=== PATIENT | female | born 1985 | race Caucasian/White ===

== ENCOUNTER 2023-06-02 00:28 | Day surgery (SDC) | payer OTHER, BC, SELFPAY ==
[2023-05-24 13:52] VITALS: BMI 31.6
--- NOTE | 2023-05-24 13:53 | PC.NURSE ---
Report to the Outpatient Waiting Room, entrance under the green pavilion located off [facility], at time _0730_ on date _[id number]_. Planned Procedure Time: _0930_. Time changes happen often and if your time is changed the preop area will call you the afternoon before. - You and your visitor will be asked to self-screen and do not enter if you have any COVID symptoms. - A mask is optional within the hospital at this time. Patients may have clear liquids (water, carbonated beverages, clear teas, apple juice) until 3 hours prior to surgery with a maximum of 20 ounces. - No food from midnight until time of surgery Take the following medications with a SIP of water the morning of surgery: None DO NOT STOP ANY OF YOUR OTHER PRESCRIPTION MEDICATIONS PRIOR TO SURGERY ?EXCEPT THE FOLLOWING Medications to discontinue per physician None Date to take last dose Please no make-up, nail uruguayan, hairspray, perfume, deodorant, or body powder the day of surgery. No jewelry (including any body piercings) or valuables the day of surgery, leave them at home. Please take a shower or bath the night before, or the morning of, surgery with an antibacterial soap. Wear comfortable, loose fitting clothing. - Jewelry must be removed prior to entering the operating room. Rings and piercings that are not removed may be cut off. - The hospital will not accept responsibility for valuables. - Please leave all valuables, including medications, at home the day of surgery. If you are going home after surgery, a licensed transit bus driver must drive you home. - NO public transportation without another adult if you receive anesthesia. - We recommend that an adult stay with you for 24 hours following discharge. - We also recommend that you do not drive, make important decision, drink alcoholic beverages, or take any drugs that were not prescribed by your health care provider for at least 24 hours after your discharge time. Follow any additional instructions given to you from your surgeon. If you or anyone in your household have experienced Covid symptoms in the past week, please notify your surgeon or the nurse liaison at the phone number below for possible testing. Telephone instructions given to _Ann_and asked if any additional questions and then verbalized understanding. Patient advised to call surgeon office or pre surgery nurse liaison [phone] if any additional questions.
[2023-06-02] VITALS (9 sets, daily range): BP systolic 101–123; BP diastolic 54–76; PULSE 53–79; RESP 14–19; TEMP 36.1–36.6; O2SAT 99–100
[2023-06-02] MEDS: LACTATED RINGERS 1,000 ML 30 ML IV CONT ×2 (08:00→10:14)
[2023-06-02] MEDS: ACETAMINOPHEN 500 MG TABLET 1000 MG PO (08:00)
[2023-06-02] MEDS: GABAPENTIN 300 MG CAPSULE PO (08:00)
--- NOTE | 2023-06-02 08:58 | WPDHPUPDATE1 ---
History and Physical Update Update Date/Time: 06/02/23 08:58 History and Physical has been reviewed, including an updated exam of the patient. There are NO changes in the patient's condition. Risks, benefits, and alternatives have been discussed and questions answered. Patient agrees to proceed with procedure.
--- NOTE | 2023-06-02 08:58 | PM.IMHP ---
H&P: HPI History of Present Illness Date/Time: 06/02/23 08:58 Chief Complaint: I'm here for my surgery Narrative: Jalyn presents for diagnostic laparoscopy, bilateral salpingectomy desiring permanent sterilization. Review of Systems Review of Systems: All systems reviewed & are unremarkable except as noted in HPI and below PMFSH Social History Social History Smoking status: Never smoker Alcohol intake: current Drinks per week: 1 Living arrangements: with family Spiritual care concerns: No Meds Home Medications and Allergies Home Medications Medication Instructions Recorded Confirmed Type No Home Medications 05/24/23 06/02/23 History Allergies Allergy/AdvReac Type Severity Reaction Status Date / Time cephalexin Allergy Mild Rash Verified 05/24/23 13:46 Penicillins Allergy Mild Rash Verified 05/24/23 13:46 Vital Signs Vital Signs - 24 hr 06/02/23 08:49 Temperature 36.5 C Pulse Rate 70 Respiratory Rate 16 Blood Pressure 118/76 Pulse Oximetry 100 Oxygen Delivery Room Air Exam Const: General: comfortable and no acute distress Eyes: General: appearance normal, both eyes and all related structures Neck: Neck: supple Resp: Effort & Inspection: normal respiratory effort Auscultation: clear to auscultation bilaterally Cardio: Rate: regular rate Rhythm: regular rhythm GI: GI Palp: Yes Soft to palpation Auscultation: normal bowel sounds Skin: General skin exam: normal color and no rashes or lesions noted Neuro: General: gait normal Speech: normal speech Motor exam (neuro): 5/5 motor strength present throughout Sensory Exam: normal sensation Psych: Mental Status: mental status grossly normal Assessment and Plan Assessment and plan (1) Sterilization: Code(s): Z30.2 - Encounter for sterilization Status: Acute Plan Diagnostic laparoscopy, bilateral salpingectomy Quality VTE Prophylaxis VTE prophylaxis: mechanical ordered
--- NOTE | 2023-06-02 09:07 | P.PNAN_ITS ---
Anes - Initial Pre Proc Eval Procedure: Operation Date: 06/02/23 09:30 Proposed Procedures p Diagnostic Laparoscopy with Bilateral Salpingectomy - Zenaida Fonseca DO Date/Time: 06/02/23 09:07 Surgeon: Zenaida Fonseca DO Pre Op Diagnosis: desires sterilization Patient Data Age: 38 Gender: F Height: 1.71 m Weight: 87.6 kg Last Vital Signs Temp 97.7 F 06/02/23 08:49 Pulse 70 06/02/23 08:49 Resp 16 06/02/23 08:49 BP 118/76 06/02/23 08:49 Pulse Ox 100 06/02/23 08:49 O2 Del Method Room Air 06/02/23 08:49 Allergies Allergy/AdvReac Type Severity Reaction Status Date / Time cephalexin Allergy Mild Rash Verified 05/24/23 13:46 Penicillins Allergy Mild Rash Verified 05/24/23 13:46 Home Medications Medication Instructions Recorded Confirmed Type No Home Medications 05/24/23 06/02/23 History Patient hx anesthesia problems: none Family hx anesthesia problems: none Results Review: All pre-operative results and documents have been reviewed as part of the pre- operative evaluation. [facility] Social History Social History Smoking status: Never smoker Alcohol intake: current Drinks per week: 1 Living arrangements: with family Spiritual care concerns: No Anes - Eval Final PreProcedure Day of Procedure 06/02/23 09:07 Patient weight: normal Heart: regular rate and rhythm Lungs: clear to auscultation Airway: Mallampati scale class II Neurological: alert and oriented Last oral intake: >/= 8 hours ASA classification: II Emergent: no Anesthetic plan: proceed Anesthesia type and monitoring: general ETT and standard monitoring Results Review: All pre-operative results and documents have been reviewed as part of the pre- operative evaluation. Informed Consent: The patient's anesthetic plan and its attendant risks and benefits were discussed with the patient/family/POA. Questions were solicited and answers provided to the satisfaction of the patient/family/POA.
[2023-06-02] MEDS: BUPIVACAINE/EPINEPHRINE 0.5% 30 ML VIAL 15 ML INFILTRATE (09:58)
--- NOTE | 2023-06-02 10:23 | P.OP_ITS ---
Procedure Note - Detailed Date of Procedure 06/02/23 Pre-op Diagnosis desires sterilization Post-op Diagnosis Same Procedure Performed Diagnostic laparoscopy, bilateral salpingectomy. Surgeon Zenaida Fonseca, Insurance Counsel Althea Anesthesia General Indications Desires permanent sterilization Findings Normal appearing vulva and vaginal canal. Medium cervix. Uterus sounded to 8 cm. Internally, the liver, stomach and intestines were normal. The uterus was slightly boggy and wide. The ovarie and tube appeared normal. There were some peritoneal adhesions from the the lower pelvic sidewall to the back of the cervix. These were transected in case they were contributing to pain. Description of Procedure Patient was taken to the operating room where she was placed under general anesthesia. She was prepped and draped in the normal sterile fashion in dorsal lithotomy position. No preoperative antibiotics were indicated. A time-out was performed. A speculum was placed in the vagina and the cervix was visualized. Single-tooth tenaculum was used to grasp the posterior lip of the cervix and the cervix was dilated up to accommodate the manipulator. The manipulator was placed, the speculum and tenaculum were removed. Gloves were changed and attention was then turned to the abdomen. Skin above the umbilicus was grasped with 2 penetrating towel clamps and a small incision was made after injecting local. The Veress needle was introduced and the saline water drop test was performed. This confirmed intraperitoneal placement and CO2 insufflation was started. The abdomen was brought to a pressure of 15 mmHg. The Veress needle was then replaced with a 5 mm Optiview trocar. Survey of the abdomen revealed no evidence of bowel or vascular injury upon entry. Patient was placed in steep Trendelenburg position. Additional trocar sites in the right and left lower quadrants were identified, injected and incised. 5 mm trocars were introduced under direct visualization. Survey of the abdomen and pelvis revealed the above-mentioned findings. The right tube was elevated and was cauterized and transected off using the LigaSure, the specimen was passed off to the faculty i on call medical assistant port. The left tube was also elevated and was cauterized and transected off and removed through the faculty i on call medical assistant port. The peritoneal adhesion in the left lower pelvis was transected using the LigaS ure. Survey of the pelvis revealed good hemostasis in all pedicles. The instruments and trocars were removed and the CO2 gas was allowed to escape. The abdominal incisions were injected with additional local and were sutured closed with 4-0 Monocryl in a subcuticular fashion. The uterine manipulator was removed. The patient was taken to the recovery room in stable condition. All instrument and sponge counts were correct at the conclusion of the procedure. Estimated Blood Loss 5 Drains No Packing No Pathology Yes Complications No immediate complications Condition Stable Disposition PACU
--- NOTE | 2023-06-02 11:12 | SUR.PHASEII ---
pt transitioned into outpatient recovery in PACU due to having no outpt beds available
== END 2023-06-02 12:20 | disposition home or self-care (01) ==
PROVIDERS: PCP Obstetrics & Gynecology; Visit Provider Obstetrics & Gynecology Gynecologic Oncology
PROC: (CPT 49320; principal; 2023-06-02 09:30)
DX: Z30.2 Encounter for sterilization (principal); N73.6 Female pelvic peritoneal adhesions (postinfective)
CPT/HCPCS: 58661; 88302; A9270; J1100; J1596; J2250; J2405; J2704; J2710; J3010; J7120